=== PATIENT | male | born 1975 | race Caucasian/White ===

== ENCOUNTER 2018-07-30 21:15 | Emergency (ER) | payer BC ==
[~2018-07-30] VITALS: Ht 185.4 cm; Wt 111.1 kg
[2018-07-30] MEDS ORDERED: Motrin,Rufen800 MG PO (21:20)
[2018-07-30] MEDS ORDERED: HUMULIN 70/30 703 M1 SQ (21:20)
[2018-07-30] MEDS ORDERED: MEDROL DOSEPAK4 MG PO (23:15)
[2018-07-30] MEDS ORDERED: ROBAXIN500 M1 PO (23:15)
== END 2018-07-30 23:20 | disposition home or self-care (01) ==
LOC: ED 21:15
DX: M54.16 Radiculopathy, lumbar region (principal); Z79.899 Other long term (current) drug therapy; Z79.4 Long term (current) use of insulin; Z91.030 Bee allergy status; Z88.5 Allergy status to narcotic agent

== ENCOUNTER 2018-08-02 20:06 | Emergency (ER) | payer BC ==
[~2018-08-02] VITALS: Ht 185.4 cm; Wt 109.8 kg
[~2018-08-02 20:06] MED LIST: HUMULIN 70/30 703 M1 SQ; MEDROL DOSEPAK4 MG PO; Motrin,Rufen800 MG PO; ROBAXIN500 M1 PO
[2018-08-02] MEDS ORDERED: LIDODERM1 EACH T (20:52)
== END 2018-08-02 21:16 | disposition home or self-care (01) ==
LOC: ED 20:06
DX: M54.5 Low back pain (principal); R20.0 Anesthesia of skin; M79.604 Pain in right leg; M79.605 Pain in left leg; E11.9 Type 2 diabetes mellitus without complications; Z91.030 Bee allergy status; Z88.6 Allergy status to analgesic agent; Z79.4 Long term (current) use of insulin; Z79.1 Long term (current) use of non-steroidal anti-inflammatories (NSAID)

== ENCOUNTER → 2018-08-26 | Outpatient (CLI) | payer BC ==
[~2018-08-26] MED LIST changes: +LIDODERM1 EACH T
[2018-08-26 08:55] LABS: BASO # 0.1 10*3/uL (0.0-0.1); BASO % 0.7 % (0.0-1.0); EOS # 0.2 10*3/uL (0.0-0.4); EOS % 2.7 % (1.0-4.0); HEMATOCRIT 46.2 % (42.0-52.0); HEMOGLOBIN 15.4 g/dl (14.0-18.0); LYMPH # 2.5 10*3/uL (1.3-4.4); LYMPH % 36.1 % (27.0-41.0); MEAN CELL VOLUME 82.5 fl (80.0-94.0); MEAN CORPUSCULAR HGB 27.5 pg (27.0-31.0); MEAN CORPUSCULAR HGB CONC 33.3 g/dl (33.0-37.0); MEAN PLATELET VOLUME 8.8 fl (9.6-12.3); MONO # 0.7 10*3/uL (0.1-1.0); MONO % 10.1 % (3.0-9.0); NEUT # 3.5 10*3/uL (2.3-7.9); NEUT % 50.1 % (47.0-73.0); PLATELET COUNT AUTOMATED 277 10*3/uL (130-400); RED CELL DISTRI WIDTH 13.3 % (0-14.5)
[2018-08-26 09:23] LABS: ALBUMIN 3.8 gm/dl (3.1-4.5); ALKALINE PHOSPHATASE 75 U/L (45-117); BUN 14 mg/dl (7-24); CHLORIDE 103 mmol/L (98-107); CHOLESTEROL 143 mg/dL (<200); CREATININE 0.75 mg/dL (0.70-1.30); HDL CHOLESTEROL 24 mg/dl (40-60); LDL CHOLESTEROL 74 mg/dL (9-159); POTASSIUM 4.1 mmol/L (3.5-5.1); SGOT/AST 24 IU/L (3-35); SGPT/ALT 45 U/L (12-78); SODIUM 134 mmol/L (136-145); TOTAL PROTEIN 7.3 gm/dL (6.4-8.2); TRIGLYCERIDES 224 mg/dl (<150); VLDL CHOLESTEROL 45 mg/dL (6-40)
[2018-08-27 11:04] LABS: CREATININE,URINE 63.7 mg/dL (Not Estab.); MICRO ALBUMIN/CRE RATIO 286.3 (0.0-30.0)
== END | disposition home or self-care (01) ==
LOC: LAB 08:12
PROVIDERS: Nurse Practitioner Family
DX: Z12.5 Encounter for screening for malignant neoplasm of prostate (principal); M54.41 Lumbago with sciatica, right side; E11.9 Type 2 diabetes mellitus without complications; Z79.4 Long term (current) use of insulin

== ENCOUNTER 2018-08-29 19:23 | Emergency (ER) | payer BC ==
[~2018-08-29] VITALS: Ht 182.8 cm; Wt 106.6 kg
[2018-08-29 19:40] LABS: BILIRUBIN NEGATIVE (NEGATIVE); BLOOD NEGATIVE (NEGATIVE); CLARITY CLEAR (CLEAR); COLOR YELLOW (YELLOW); GLUCOSE 3+ (NEGATIVE); KETONE NEGATIVE (NEGATIVE); LEUKO ESTERASE NEGATIVE (NEGATIVE); NITRITE NEGATIVE (NEGATIVE); PH 6.5 (5.0-9.0); UROBILINOGEN 0.2 E.U./dl (0.2-1.0)
[2018-08-29 19:47] LABS: BACTERIA 1+; EPITHELIAL CELLS 0-2; RBC 0-2 rbc/hpf (0-2)
[2018-08-29 19:54] LABS: BASO # 0.1 10*3/uL (0.0-0.1); BASO % 0.8 % (0.0-1.0); EOS # 0.2 10*3/uL (0.0-0.4); EOS % 2.3 % (1.0-4.0); HEMATOCRIT 45.3 % (42.0-52.0); HEMOGLOBIN 15.7 g/dl (14.0-18.0); MEAN CORPUSCULAR HGB 27.7 pg (27.0-31.0); MEAN CORPUSCULAR HGB CONC 34.7 g/dl (33.0-37.0); MEAN PLATELET VOLUME 8.3 fl (9.6-12.3); MONO % 11.6 % (3.0-9.0); NEUT # 4.3 10*3/uL (2.3-7.9); NEUT % 50.1 % (47.0-73.0); PLATELET COUNT AUTOMATED 296 10*3/uL (130-400); RED BLOOD COUNT 5.66 10*6/uL (4.50-5.90); RED CELL DISTRI WIDTH 13.2 % (0-14.5); WHITE BLOOD COUNT 8.5 10*3/uL (4.8-10.8)
[2018-08-29 20:09] LABS: ALBUMIN 3.7 gm/dl (3.1-4.5); ALKALINE PHOSPHATASE 88 U/L (45-117); BUN 9 mg/dl (7-24); CHLORIDE 103 mmol/L (98-107); CREATININE 0.98 mg/dL (0.70-1.30); LIPASE 178 U/L (73-393); POTASSIUM 3.7 mmol/L (3.5-5.1); SGOT/AST 15 IU/L (3-35); SGPT/ALT 44 U/L (12-78); SODIUM 137 mmol/L (136-145); TOTAL PROTEIN 7.3 gm/dL (6.4-8.2)
== END 2018-08-29 21:18 | disposition left against medical advice (07) ==
LOC: ED 19:23
PROVIDERS: Student in an Organized Health Care Education/Training Program
DX: R10.11 Right upper quadrant pain (principal); R19.7 Diarrhea, unspecified; Z88.5 Allergy status to narcotic agent; Z91.030 Bee allergy status; Z79.4 Long term (current) use of insulin; Z79.899 Other long term (current) drug therapy

== ENCOUNTER 2020-11-20 08:12 | Observation (INO) | payer OTHER ==
[~2020-11-20] VITALS: Ht 185 cm; Wt 111.2 kg
[2020-11-20 08:19] VITALS: BP 170/100
[2020-11-20 09:03] LABS: BASO # 0.1 10*3/uL (0.0-0.1); BASO % 0.9 % (0.0-1.0); EOS # 0.3 10*3/uL (0.0-0.4); EOS % 4.4 % (1.0-4.0); HEMATOCRIT 44.6 % (42.0-52.0); LYMPH # 2.5 10*3/uL (1.3-4.4); LYMPH % 37.8 % (27.0-41.0); MEAN CORPUSCULAR HGB 26.8 pg (27.0-31.0); MEAN CORPUSCULAR HGB CONC 32.7 g/dl (33.0-37.0); MEAN PLATELET VOLUME 8.4 fl (9.6-12.3); MONO # 0.7 10*3/uL (0.1-1.0); MONO % 10.8 % (3.0-9.0); NEUT % 45.6 % (47.0-73.0); PLATELET COUNT AUTOMATED 244 10*3/uL (130-400); RED BLOOD COUNT 5.44 10*6/uL (4.50-5.90); RED CELL DISTRI WIDTH 13.1 % (0-14.5); WHITE BLOOD COUNT 6.6 10*3/uL (4.8-10.8)
[2020-11-20 09:14] LABS: ACT PARTIAL THROMBO TIME 23.9 SECONDS (20.0-32.1)
[2020-11-20 09:20] LABS: BILIRUBIN Negative (Negative); BLOOD Negative (Negative); CLARITY Clear (Clear); COLOR Yellow (Yellow); GLUCOSE 1+ (Negative); KETONE Trace (Negative); LEUKO ESTERASE Negative (Negative); NITRITE Negative (Negative); PH 5.5 (4.5-8.0); SPECIFIC GRAVITY >= 1.030 (1.001-1.030)
[2020-11-20 09:25] LABS: ALBUMIN 3.6 gm/dl (3.1-4.5); ALKALINE PHOSPHATASE 72 U/L (45-117); BUN 17 mg/dl (7-24); CHLORIDE 108 mmol/L (98-107); CREATININE 0.91 mg/dL (0.70-1.30); LIPASE 61 U/L (73-393); POTASSIUM 3.9 mmol/L (3.5-5.1); SGOT/AST 35 IU/L (3-35); SGPT/ALT 72 U/L (12-78); SODIUM 138 mmol/L (136-145); TOTAL PROTEIN 7.4 gm/dL (6.4-8.2)
[2020-11-20 09:27] LABS: TROPONIN I < 0.015 ng/ml (<0.045)
[2020-11-20 09:32] LABS: MUCOUS 1+
[2020-11-20 10:49] VITALS: BP 163/78
[2020-11-20 16:00] VITALS: BP 152/95
[2020-11-20] MEDS ORDERED: JARDIANCE10 MG PO (16:25)
[2020-11-20] MEDS ORDERED: BASAG SOL SC (16:26)
[2020-11-20] MEDS ORDERED: CYMBALTA30 MG PO (16:27)
[2020-11-20] MEDS ORDERED: PANTOPRAZOLE SO40 MG PO (16:27)
[2020-11-20] MEDS ORDERED: LYRICA75 M1 PO (16:28)
[2020-11-20] MEDS ORDERED: GOOD SENSE ASPI81 M1 PO (16:29)
[2020-11-20] MEDS ORDERED: PROMETHAZINE12.5 MG PO (16:29)
[2020-11-20] MEDS ORDERED: PLAVIX75 M1 PO (16:30)
[2020-11-20] MEDS ORDERED: Percocet 325 MG1 TAB PO (16:32)
[2020-11-20] MEDS ORDERED: PROVENTIL HFA6.7 GM INH (16:32)
[2020-11-20] MEDS ORDERED: TESSALON PERLE100 MG PO (16:33)
[2020-11-20] MEDS ORDERED: AMARYL4 MG PO (16:33)
[2020-11-20] MEDS ORDERED: VITAMIN D250 MCG PO (16:42)
[2020-11-20 20:00] VITALS: BP 152/89
[2020-11-21] VITALS: BP 140/94
[2020-11-21 07:07] LABS: BASO # 0.1 10*3/uL (0.0-0.1); BASO % 0.9 % (0.0-1.0); EOS # 0.2 10*3/uL (0.0-0.4); EOS % 4.1 % (1.0-4.0); HEMATOCRIT 41.9 % (42.0-52.0); LYMPH # 1.8 10*3/uL (1.3-4.4); LYMPH % 30.2 % (27.0-41.0); MEAN CORPUSCULAR HGB 26.5 pg (27.0-31.0); MEAN CORPUSCULAR HGB CONC 32.7 g/dl (33.0-37.0); MEAN PLATELET VOLUME 8.6 fl (9.6-12.3); MONO # 0.6 10*3/uL (0.1-1.0); MONO % 9.7 % (3.0-9.0); NEUT # 3.2 10*3/uL (2.3-7.9); NEUT % 54.8 % (47.0-73.0); PLATELET COUNT AUTOMATED 241 10*3/uL (130-400); RED BLOOD COUNT 5.17 10*6/uL (4.50-5.90); RED CELL DISTRI WIDTH 13.1 % (0-14.5); WHITE BLOOD COUNT 5.9 10*3/uL (4.8-10.8)
[2020-11-21 07:34] LABS: ALBUMIN 3.3 gm/dl (3.1-4.5); BUN 12 mg/dl (7-24); CHLORIDE 104 mmol/L (98-107); CHOLESTEROL 181 mg/dL (<200); CREATININE 0.82 mg/dL (0.70-1.30); POTASSIUM 3.8 mmol/L (3.5-5.1); SGOT/AST 44 IU/L (3-35); SGPT/ALT 73 U/L (12-78); SODIUM 135 mmol/L (136-145); TOTAL PROTEIN 6.6 gm/dL (6.4-8.2)
[2020-11-21 07:40] LABS: ALKALINE PHOSPHATASE 67 U/L (45-117); HDL CHOLESTEROL 24 mg/dl (40-60); LDL CHOLESTEROL 89 mg/dL (9-159); TRIGLYCERIDES 338 mg/dl (<150); VLDL CHOLESTEROL 68 mg/dL (6-40)
[2020-11-21 07:53] LABS: VITAMIN D, 25-HYDROXY 14.8 ng/mL (30-100)
[2020-11-21 08:00] VITALS: BP 142/88; BP 147/88
[2020-11-21 12:00] VITALS: BP 144/80
[2020-11-21 16:00] VITALS: BP 140/82
[2020-11-21 20:00] VITALS: BP 141/93
[2020-11-22] VITALS (9 sets, daily range): BP systolic 116–158; BP diastolic 61–91
[2020-11-23] VITALS: BP 126/75
[2020-11-23 06:41] LABS: BASO # 0.1 10*3/uL (0.0-0.1); BASO % 0.8 % (0.0-1.0); EOS # 0.2 10*3/uL (0.0-0.4); HEMATOCRIT 41.3 % (42.0-52.0); LYMPH # 1.7 10*3/uL (1.3-4.4); LYMPH % 26.7 % (27.0-41.0); MEAN CELL VOLUME 81.1 fl (80.0-94.0); MEAN CORPUSCULAR HGB 26.7 pg (27.0-31.0); MEAN CORPUSCULAR HGB CONC 32.9 g/dl (33.0-37.0); MEAN PLATELET VOLUME 8.3 fl (9.6-12.3); MONO # 0.7 10*3/uL (0.1-1.0); MONO % 10.4 % (3.0-9.0); NEUT # 3.7 10*3/uL (2.3-7.9); NEUT % 58.8 % (47.0-73.0); PLATELET COUNT AUTOMATED 218 10*3/uL (130-400); RED BLOOD COUNT 5.09 10*6/uL (4.50-5.90); RED CELL DISTRI WIDTH 12.8 % (0-14.5); WHITE BLOOD COUNT 6.3 10*3/uL (4.8-10.8)
[2020-11-23 06:54] LABS: ALBUMIN 3.4 gm/dl (3.1-4.5); BUN 8 mg/dl (7-24); CHLORIDE 107 mmol/L (98-107); CREATININE 0.81 mg/dL (0.70-1.30); POTASSIUM 3.8 mmol/L (3.5-5.1); SGOT/AST 39 IU/L (3-35); SGPT/ALT 80 U/L (12-78); SODIUM 138 mmol/L (136-145)
[2020-11-23 06:56] LABS: ALKALINE PHOSPHATASE 72 U/L (45-117); TOTAL PROTEIN 6.7 gm/dL (6.4-8.2)
[2020-11-23 08:00] VITALS: BP 138/72
[2020-11-23] MEDS ORDERED: ERY-TAB500 MG PO (09:38)
== END 2020-11-23 11:11 | disposition home or self-care (01) ==
LOC: ED 08:12 → EDHOLD 13:14 → 5E 13:14 → EDHOLD 14:10 → 5E 14:48
PROVIDERS: Emergency Medicine; Hospitalist; Registered Nurse; ADMIT Family Medicine; ATTEND Family Medicine
DX: K29.50 Unspecified chronic gastritis without bleeding (principal); R11.2 Nausea with vomiting, unspecified; R19.7 Diarrhea, unspecified; R00.0 Tachycardia, unspecified; I10 Essential (primary) hypertension; E11.9 Type 2 diabetes mellitus without complications; E78.5 Hyperlipidemia, unspecified; K21.9 Gastro-esophageal reflux disease without esophagitis; K56.50 Intestinal adhesions [bands], unspecified as to partial versus complete obstruction; I25.2 Old myocardial infarction; K31.84 Gastroparesis; Z98.890 Other specified postprocedural states; Z79.4 Long term (current) use of insulin; Z79.899 Other long term (current) drug therapy

== ENCOUNTER 2021-03-25 09:28 | Emergency (ER) | payer BC, OTHER ==
[~2021-03-25] VITALS: Ht 182.8 cm; Wt 108.9 kg
[~2021-03-25 09:28] MED LIST changes: +AMARYL4 MG PO; +BASAG SOL SC; +CYMBALTA30 MG PO; +ERY-TAB500 MG PO; +GOOD SENSE ASPI81 M1 PO; +JARDIANCE10 MG PO; +LYRICA75 M1 PO; +PANTOPRAZOLE SO40 MG PO; +PLAVIX75 M1 PO; +PROMETHAZINE12.5 MG PO; +PROVENTIL HFA6.7 GM INH; +Percocet 325 MG1 TAB PO; +TESSALON PERLE100 MG PO; +VITAMIN D250 MCG PO
== END 2021-03-25 10:15 | disposition home or self-care (01) ==
LOC: ED 09:28
DX: S05.02XA Injury of conjunctiva and corneal abrasion without foreign body, left eye, initial encounter (principal); Z91.030 Bee allergy status; Z88.6 Allergy status to analgesic agent; Z88.8 Allergy status to other drugs, medicaments and biological substances; Z79.2 Long term (current) use of antibiotics; Z79.4 Long term (current) use of insulin; Z79.899 Other long term (current) drug therapy; Z79.82 Long term (current) use of aspirin; Z95.5 Presence of coronary angioplasty implant and graft; Z90.49 Acquired absence of other specified parts of digestive tract; Z90.89 Acquired absence of other organs; Z98.890 Other specified postprocedural states; X58.XXXA Exposure to other specified factors, initial encounter; Y93.89 Activity, other specified; Y92.89 Other specified places as the place of occurrence of the external cause; Y99.8 Other external cause status

== ENCOUNTER → 2021-11-19 | Outpatient (CLI) | payer BC, OTHER | END | disposition home or self-care (01) | LOC: RAD 10:59 | PROVIDERS: ATTEND Preventive Medicine Occupational Medicine | DX: M47.817 Spondylosis without myelopathy or radiculopathy, lumbosacral region (principal); M48.07 Spinal stenosis, lumbosacral region ==

== ENCOUNTER → 2022-03-29 | Outpatient (CLI) | payer BC | END | disposition home or self-care (01) | LOC: RAD 11:45 | PROVIDERS: ATTEND Nurse Practitioner | DX: M54.16 Radiculopathy, lumbar region (principal) ==

== ENCOUNTER → 2022-12-30 | Outpatient (CLI) | payer BC | END | disposition home or self-care (01) | LOC: RAD 11:26 | PROVIDERS: ATTEND Nurse Practitioner | DX: M54.16 Radiculopathy, lumbar region (principal) ==

== ENCOUNTER 2025-01-20 00:05 | Emergency (ER) | payer BC ==
[~2025-01-20] VITALS: Ht 182.8 cm; Wt 86.2 kg
== END 2025-01-20 00:34 | disposition home or self-care (01) ==
LOC: ED 00:05
DX: T82.594A Other mechanical complication of infusion catheter, initial encounter (principal); Y84.8 Other medical procedures as the cause of abnormal reaction of the patient, or of later complication, without mention of misadventure at the time of the procedure; Y92.89 Other specified places as the place of occurrence of the external cause

== ENCOUNTER 2025-04-05 21:12 | Emergency (ER) | payer BC ==
[~2025-04-05] VITALS: Ht 177.8 cm; Wt 81.6 kg
[~2025-04-05 21:12] MED LIST changes: +BUPROPION HYDR150 M1 PO; +CEFEPIME2 GM/100 M IV; +FLUONAZOLE200 M1 PO; +FLUOXETINE HCL40 MG PO; +LACTOBACILLUS1 EACH PO; +LANTUS100 UNIT/1 SQ; +LEVOFLOXACIN750 M2 PO; +LYRICA200 M1 PO; -LYRICA75 M1 PO; +OXYCODONE HCL5 MG PO; +VANCO 1.251.25 GM/25 IV; +VOQUEZNA10 MG PO; +XARE15TA PO; +XARELTO20 M1 PO
== END 2025-04-06 02:19 ==
LOC: ED 21:12
DX: I46.9 Cardiac arrest, cause unspecified (principal); Z91.030 Bee allergy status; Z88.6 Allergy status to analgesic agent; Z88.8 Allergy status to other drugs, medicaments and biological substances; Z79.899 Other long term (current) drug therapy; Z79.82 Long term (current) use of aspirin; Z95.5 Presence of coronary angioplasty implant and graft; Z90.49 Acquired absence of other specified parts of digestive tract; Z90.89 Acquired absence of other organs; Z98.890 Other specified postprocedural states